=== PATIENT | female | born 1975 | race Caucasian/White ===

== ENCOUNTER 2019-12-22 17:32 | Emergency (ER) | payer SELFPAY ==
[~2019-12-22] VITALS: Ht 162.6 cm; Wt 72.6 kg
[~2019-12-22 17:32] MED LIST: ESK300 PO; QUET400T PO
[2019-12-22 17:38] VITALS: BP 121/81
--- NOTE | 2019-12-22 17:38 | NUR ---
PT BIB [facility] TO ER BED 5
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
[2019-12-22] MEDS ORDERED: MULTIVITAMIN-12 10 ML, THIAMINE 100 MG, MAGNESIUM SULFATE 50% 2,000 MG, FOLIC ACID 1 MG... IV SCH ×10 (17:50→17:56)
--- NOTE | 2019-12-22 17:53 | NUR ---
JESSA MURILLO AT BEDSIDE EVALUATING PT.
[2019-12-22 18:22] LABS: BASOPHILS # (AUTO) 0.1 K/uL (0.00-0.22); EOSINOPHILS # (AUTO) 0.2 K/uL (0-0.4); EOSINOPHILS % (AUTO) 1.8 % (0.0-4.0); HEMATOCRIT 39.4 % (36-48); HEMOGLOBIN 13.2 g/dL (12.0-16.0); LYMPHOCYTES # (AUTO) 2.2 K/uL (2.5-16.5); LYMPHOCYTES % (AUTO) 26.4 % (20.5-51.1); MEAN CORPUSCULAR HEMOGLOBIN 31 pg (27-31); MEAN CORPUSCULAR HGB CONC 33 g/dL (33-37); MEAN CORPUSCULAR VOLUME 92.3 fL (80-94); MONOCYTES # (AUTO) 0.6 K/uL (0.8-1.0); MONOCYTES % (AUTO) 7.7 % (1.7-9.3); NEUTROPHILS # (AUTO) 5.3 K/uL (1.8-7.7); NEUTROPHILS % (AUTO) 63.1 % (42.2-75.2); PLATELET COUNT (AUTO) 281 K/uL (140-450); RED BLOOD CELL COUNT(AUTO) 4.27 MIL/uL (4.20-5.40); RED CELL DISTRIBUTION WIDTH 14.6 % (11.6-13.7); WHITE BLOOD COUNT (AUTO) 8.4 K/uL (4.8-10.8)
--- NOTE | 2019-12-22 18:30 | NUR ---
EKG DONE , JESSA MURILLO INFORMED AND AWARE.
[2019-12-22 18:37] LABS: ALBUMIN 3.3 g/dL (3.4-5.0); ANION GAP 16.4 (8-16); CARBON DIOXIDE 22.7 mmol/L (21-32); CREATININE 0.9 mg/dL (0.6-1.3); POTASSIUM 3.1 mmol/L (3.5-5.1); TOTAL BILIRUBIN 0.2 mg/dL (0.0-1.0)
--- NOTE | 2019-12-22 19:04 | NUR ---
GAVE REPORT TO CLIFF MABRY PT SLEEPING IN BED WITH STABLE VS , SIDE RAIL UP X1 AND LOCK AT LOWEST POSITION , 200 ML LEFT IN IV BAG.
[2019-12-22] MEDS ORDERED: POTASSIUM CHLORIDE 10 MEQ TABER PO ONE (19:10)
--- NOTE | 2019-12-22 19:20 | NUR ---
RECEIVED REPORT FROM CLIFF BARILLAS. PT SLEEPING WITH HOB ELEVATED. VSS. NO NEW CONCERNS AT THIS TIME. BED LOCKED AND IN LOWEST POSITION, SIDE RAIL UPX1. WILL CONTINUE TO MONITOR.
[2019-12-22 22:33] VITALS: BP 121/81
--- NOTE | 2019-12-22 22:34 | NUR ---
Patient discharged with v/s stable. Written and verbal after care instructions given and explained. Patient verbalized understanding. Ambulatory with to car. All questions addressed prior to discharge. Advised to follow up with PMD.
== END 2019-12-22 22:34 | disposition home or self-care (01) ==
LOC: MED 17:32
DX: F10.129 Alcohol abuse with intoxication, unspecified (principal); Y90.7 Blood alcohol level of 200-239 mg/100 ml; F31.89 Other bipolar disorder; F20.89 Other schizophrenia; Z98.890 Other specified postprocedural states; Z79.899 Other long term (current) drug therapy
CPT/HCPCS: 36415; 80053; 81002; 81025; 83690; 85025; 93005; 96365; 99284; A9153; G0482; J3411; J3475; J3490; J7060

== ENCOUNTER 2022-12-30 14:15 | Inpatient (IN) | payer MEDICAID ==
[~2022-12-30] VITALS: Ht 158.8 cm; Wt 82.1 kg
[2022-12-30 14:40] VITALS: BP 132/74; PULSE 125; RESP 20; TEMP 98.5; O2SAT 98
[2022-12-30] MEDS ORDERED: diphenhydrAMINE 50 MG/ML VIAL IVP ONE (15:10)
[2022-12-30] MEDS ORDERED: NACL 0.9% 1,000 ML IV ONE (15:10)
[2022-12-30] MEDS ORDERED: LORazepam 2 MG/ML VIAL IVP ONE (15:10)
[2022-12-30 15:22] VITALS: O2SAT 98
[2022-12-30 15:43] LABS: BASOPHILS # (AUTO) 0.1 K/uL (0.00-0.22); BASOPHILS % (AUTO) 0.4 % (0.0-2.0); HEMATOCRIT 38.4 % (36-48); HEMOGLOBIN 12.9 g/dL (12.0-16.0); LYMPHOCYTES # (AUTO) 1.3 K/uL (2.5-16.5); LYMPHOCYTES % (AUTO) 9.4 % (20.5-51.1); MEAN CORPUSCULAR HEMOGLOBIN 31 pg (27-31); MEAN CORPUSCULAR HGB CONC 34 g/dL (33-37); MEAN CORPUSCULAR VOLUME 93.1 fL (80-94); MONOCYTES % (AUTO) 6.9 % (1.7-9.3); NEUTROPHILS # (AUTO) 11.9 K/uL (1.8-7.7); NEUTROPHILS % (AUTO) 83.3 % (42.2-75.2); PLATELET COUNT (AUTO) 324 K/uL (140-450); RED BLOOD CELL COUNT(AUTO) 4.12 MIL/uL (4.20-5.40); RED CELL DISTRIBUTION WIDTH 14.2 % (11.6-13.7); WHITE BLOOD COUNT (AUTO) 14.3 K/uL (4.8-10.8)
[2022-12-30 15:56] LABS: ALBUMIN 3.6 g/dL (3.4-5.0); CALCIUM 8.8 mg/dL (8.5-10.1); CARBON DIOXIDE 23.1 mmol/L (21-32); CREATININE 2.6 mg/dL (0.6-1.3); POTASSIUM 3.1 mmol/L (3.5-5.1); TOTAL BILIRUBIN 0.1 mg/dL (0.0-1.0); TOTAL PROTEIN, SERUM 7.5 g/dL (6.4-8.2)
[2022-12-30 16:53] LABS: CREATINE KINASE, TOTAL 979 U/L (26-192)
[2022-12-30 17:22] VITALS: O2SAT 96
[2022-12-30] MEDS ORDERED: POTASSIUM CHLORIDE 20% 40 MEQ/15 ML UDC PO ONE (17:40)
[2022-12-30 18:55] VITALS: O2SAT 96
[2022-12-30] MEDS ORDERED: ALBUTEROL 0.083% 2.5 MG/3 ML NEBU INH PRN (18:55)
[2022-12-30] MEDS ORDERED: LORazepam 2 MG/ML VIAL IVP PRN (18:55)
[2022-12-30] MEDS ORDERED: MORPHINE SULFATE 2 MG/ML SYR IVP PRN (18:55)
[2022-12-30] MEDS ORDERED: ACETAMINOPHEN 325 MG TAB PO PRN (19:00)
[2022-12-30] MEDS ORDERED: ONDANSETRON 4 MG/2 ML VIAL IVP PRN (19:00)
[2022-12-30] MEDS: NACL 0.9% 1,000 ML IV SCH (19:59)
[2022-12-30 20:09] LABS: ALCOHOL, BLOOD < 3 mg/dL (<10); SALICYLATE 3.1 mg/dL (2.8-20.0)
[2022-12-30 20:13] LABS: ACETAMINOPHEN < 0.5 ug/ml (10-30)
[2022-12-30] MEDS ORDERED: QUEtiapine FUMARATE 25 MG TAB PO SCH (21:00)
[2022-12-30 21:35] VITALS: BP 110/64; PULSE 84; RESP 16; TEMP 97.8; O2SAT 94
[2022-12-31] VITALS (7 sets, daily range): BP systolic 115–141; BP diastolic 59–84; PULSE 75–87; RESP 16–18; TEMP 96.8–97.8; O2SAT 93–98
[2022-12-31 07:17] LABS: ANION GAP 12.3 (8-16); CALCIUM 8.1 mg/dL (8.5-10.1); CARBON DIOXIDE 24.3 mmol/L (21-32); CREATININE 2.1 mg/dL (0.6-1.3); POTASSIUM 3.6 mmol/L (3.5-5.1)
[2022-12-31 07:29] LABS: MAGNESIUM 2.2 mg/dL (1.8-2.4); PHOSPHORUS 3.1 mg/dL (2.5-4.9)
[2022-12-31 07:47] LABS: BASOPHILS # (AUTO) 0.1 K/uL (0.00-0.22); BASOPHILS % (AUTO) 0.7 % (0.0-2.0); EOSINOPHILS % (AUTO) 0.3 % (0.0-4.0); HEMATOCRIT 36.9 % (36-48); HEMOGLOBIN 12.3 g/dL (12.0-16.0); LYMPHOCYTES # (AUTO) 2.4 K/uL (2.5-16.5); LYMPHOCYTES % (AUTO) 23.2 % (20.5-51.1); MEAN CORPUSCULAR HEMOGLOBIN 31 pg (27-31); MEAN CORPUSCULAR HGB CONC 33 g/dL (33-37); MEAN CORPUSCULAR VOLUME 93.6 fL (80-94); MONOCYTES # (AUTO) 0.9 K/uL (0.8-1.0); MONOCYTES % (AUTO) 8.9 % (1.7-9.3); NEUTROPHILS % (AUTO) 66.9 % (42.2-75.2); PLATELET COUNT (AUTO) 283 K/uL (140-450); RED BLOOD CELL COUNT(AUTO) 3.94 MIL/uL (4.20-5.40); RED CELL DISTRIBUTION WIDTH 14.2 % (11.6-13.7); WHITE BLOOD COUNT (AUTO) 10.5 K/uL (4.8-10.8)
[2022-12-31] MEDS: NACL 0.9% 1,000 ML IV SCH ×2 (11:16→14:55)
[2022-12-31] MEDS: DIVALPROEX 500 MG TABEC PO SCH (16:49)
[2022-12-31 19:35] LABS: APPEARANCE,URINE CLEAR (CLEAR); BILIRUBIN,URINE NEGATIVE (NEGATIVE); BLOOD, URINE 3+ (NEGATIVE); COLOR,URINE YELLOW (YELLOW); LEUKOCYTE ESTERASE ,URINE NEGATIVE (NEGATIVE); NITRITE, URINE NEGATIVE (NEGATIVE); PH,URINE 7.5 (5.0-9.0); PROTEIN,URINE TRACE (NEGATIVE); UGLUCOSE NEGATIVE (NEGATIVE); UROBILINOGEN,URINE 0.2 EU/dL (0.2 - 1)
[2022-12-31 19:55] LABS: BACTERIA,URINE 1+ /HPF (None Seen); MUCUS,URINE 2+ /LPF (None Seen); RBC,URINE 80-100 /HPF (0-5); RED BLOOD CELL CASTS,URINE 0-10 /LPF (None Seen); TRICHOMONAS,URINE None Seen /HPF (None Seen); YEAST,URINE None Seen /HPF (None Seen)
[2022-12-31] MEDS: OLANZapine 5 MG TAB PO SCH (20:58)
[2023-01-01] MEDS: NACL 0.9% 1,000 ML IV SCH ×3 (01:07→20:25)
[2023-01-01 06:43] LABS: ANION GAP 11.7 (8-16); CALCIUM 8.3 mg/dL (8.5-10.1); CARBON DIOXIDE 23.9 mmol/L (21-32); CREATININE 1.6 mg/dL (0.6-1.3); POTASSIUM 3.6 mmol/L (3.5-5.1)
[2023-01-01 07:05] LABS: CREATINE KINASE, TOTAL 447 U/L (26-192)
[2023-01-01 07:19] LABS: BASOPHILS # (AUTO) 0.1 K/uL (0.00-0.22); BASOPHILS % (AUTO) 1.1 % (0.0-2.0); EOSINOPHILS # (AUTO) 0.2 K/uL (0-0.4); EOSINOPHILS % (AUTO) 2.3 % (0.0-4.0); HEMATOCRIT 34.8 % (36-48); HEMOGLOBIN 11.6 g/dL (12.0-16.0); LYMPHOCYTES # (AUTO) 2.3 K/uL (2.5-16.5); LYMPHOCYTES % (AUTO) 33.5 % (20.5-51.1); MEAN CORPUSCULAR HEMOGLOBIN 31 pg (27-31); MEAN CORPUSCULAR HGB CONC 33 g/dL (33-37); MEAN CORPUSCULAR VOLUME 93.5 fL (80-94); MONOCYTES # (AUTO) 0.5 K/uL (0.8-1.0); MONOCYTES % (AUTO) 7.2 % (1.7-9.3); NEUTROPHILS # (AUTO) 3.9 K/uL (1.8-7.7); NEUTROPHILS % (AUTO) 55.9 % (42.2-75.2); PLATELET COUNT (AUTO) 279 K/uL (140-450); RED BLOOD CELL COUNT(AUTO) 3.73 MIL/uL (4.20-5.40); RED CELL DISTRIBUTION WIDTH 14.1 % (11.6-13.7)
[2023-01-01 08:00] VITALS: BP 117/63; PULSE 66; RESP 18; TEMP 98.5; O2SAT 96
[2023-01-01] MEDS: OLANZapine 5 MG TAB PO SCH ×2 (09:28→20:26)
[2023-01-01] MEDS: DIVALPROEX 500 MG TABEC PO SCH (09:28)
[2023-01-01 16:00] VITALS: BP 117/60; PULSE 72; RESP 18; TEMP 98.8; O2SAT 99
[2023-01-01 19:04] VITALS: O2SAT 96
[2023-01-01 20:00] VITALS: PULSE 67; RESP 18; O2SAT 96
[2023-01-02] VITALS: BP 124/70; PULSE 67; RESP 18; TEMP 97.6; O2SAT 96
[2023-01-02] MEDS: NACL 0.9% 1,000 ML IV SCH (06:59)
[2023-01-02 07:28] LABS: BASOPHILS # (AUTO) 0.1 K/uL (0.00-0.22); BASOPHILS % (AUTO) 0.9 % (0.0-2.0); EOSINOPHILS # (AUTO) 0.2 K/uL (0-0.4); EOSINOPHILS % (AUTO) 2.6 % (0.0-4.0); HEMOGLOBIN 11.6 g/dL (12.0-16.0); LYMPHOCYTES # (AUTO) 2.3 K/uL (2.5-16.5); LYMPHOCYTES % (AUTO) 30.6 % (20.5-51.1); MEAN CORPUSCULAR HEMOGLOBIN 32 pg (27-31); MEAN CORPUSCULAR HGB CONC 34 g/dL (33-37); MEAN CORPUSCULAR VOLUME 93.5 fL (80-94); MONOCYTES # (AUTO) 0.5 K/uL (0.8-1.0); NEUTROPHILS # (AUTO) 4.4 K/uL (1.8-7.7); NEUTROPHILS % (AUTO) 58.9 % (42.2-75.2); PLATELET COUNT (AUTO) 263 K/uL (140-450); RED BLOOD CELL COUNT(AUTO) 3.64 MIL/uL (4.20-5.40); RED CELL DISTRIBUTION WIDTH 13.9 % (11.6-13.7); WHITE BLOOD COUNT (AUTO) 7.5 K/uL (4.8-10.8)
[2023-01-02 07:47] LABS: ANION GAP 11.3 (8-16); CALCIUM 8.4 mg/dL (8.5-10.1); CARBON DIOXIDE 25.2 mmol/L (21-32); CREATININE 1.2 mg/dL (0.6-1.3); POTASSIUM 3.5 mmol/L (3.5-5.1)
[2023-01-02] MEDS ORDERED: CEPH-588 PO (11:51)
[2023-01-02 13:29] VITALS: BP 124/70; PULSE 67; RESP 18; TEMP 97.6
[2023-01-05] MEDS ORDERED: SULF-58 PO (10:45)
== END 2023-01-02 15:11 | disposition home or self-care (01) | DRG 720 ==
LOC: MED 14:15 → MMU 18:55 → MTU 20:50
PROVIDERS: ADMIT Internal Medicine; ATTEND Internal Medicine
DX: A41.9 Sepsis, unspecified organism (principal); N17.0 Acute kidney failure with tubular necrosis; M62.82 Rhabdomyolysis; F15.10 Other stimulant abuse, uncomplicated; F31.9 Bipolar disorder, unspecified; N39.0 Urinary tract infection, site not specified
CPT/HCPCS: 36415; 76770; 80048; 80053; 81001; 82550; 82553; 83735; 84100; 85025; 87081; 87086; 93005; 96361; 96374; 96375; 97116; 97163-GP; 99285; G0480; G0482; J0696; J1200; J2060; J7060; Q0092